=== PATIENT | male | born 2000 | race Caucasian/White ===

== ENCOUNTER 2020-11-03 23:03 | Emergency (ER) | payer SELFPAY ==
[~2020-11-03] VITALS: Ht 175.3 cm; Wt 83.9 kg
[2020-11-03 23:05] VITALS: BP 125/73
--- NOTE | 2020-11-03 23:05 | NUR ---
HAM FROM HOME, PER EMS PT. TAKEN 4-6 SUBLINGUAL DROPLETS OF THC. DENIES PAIN. PT. STATES "I FEEL LIKE I HAVE INTERNAL BLEEDING." DENIES N/V/D; SKIN IS PINK/WARM/DRY; AAOX4 WITH EVEN AND STEADY GAIT; HR EVEN AND REGULAR; PT DENIES ANY FEVER, CP, SOB, OR COUGH AT THIS TIME; PATIENT STATES PAIN OF 0/10 AT THIS TIME; VSS; PATIENT POSITIONED FOR COMFORT; HOB ELEVATED; BEDRAILS UP X2; BED DOWN. ER MADE AWARE OF PT STATUS. PMH: DENIES ALLERGIES: NKA Addendum: 11/03/20 at 2331 by [facility] 20 Y/O MALE
--- NOTE | 2020-11-03 23:36 | NUR ---
ANN SILVA AT BEDSIDE FOR MEDICAL EXAMINATION
[2020-11-04] MEDS ORDERED: NACL 0.9% 1,000 ML IV ONE (00:05)
[2020-11-04] MEDS ORDERED: LORazepam 2 MG/ML VIAL IVP ONE (00:05)
--- NOTE | 2020-11-04 00:10 | NUR ---
PT. REFUSING TO DRAW LABS AND IV PLACEMENT. EDUCATED ON IMPORTANCE OF TESTING AND IV PLACEMENT AND PT. STILL REFUSING. ANN SILVA MADE AWARE.
--- NOTE | 2020-11-04 00:15 | NUR ---
PT. REFUSING TO GIVE URINE SAMPLE. EDUCATED ON IMPORTANCE OF URINE COLLECTION, PT. STILL REFUSING URINE SAMPLE. PT. AMBULATED TO BATHROOM WITH EVEN AND STEADY GAIT.
--- NOTE | 2020-11-04 00:20 | NUR ---
XRAY AT BEDSIDE
--- NOTE | 2020-11-04 00:25 | NUR ---
PT. REFUSED XRAY. PT. STATES "NO I DON'T WANT IT, IT'S BAD FOR THE CELLULAR BODY"
--- NOTE | 2020-11-04 00:55 | NUR ---
PT. DISCHARGED AND LEFT WITHOUT D/C PAPERS. PT. REFUSED TO SIGN D/C PAPERS. PT. STATES HIS RELATIVE IS OUTSIDE WAITING FOR HIM.
[2020-11-04 00:58] VITALS: BP 118/71
== END 2020-11-04 00:55 | disposition home or self-care (01) ==
LOC: MED 23:03
DX: R00.2 Palpitations (principal)
CPT/HCPCS: 99283